=== PATIENT | male | born 1975 | race Hispanic/Latino ===

== ENCOUNTER 2020-09-01 20:09 | Inpatient (IN) | payer BC, OTHER ==
[~2020-09-01] VITALS: Ht 188 cm; Wt 121.7 kg
[2020-09-01 20:53] LABS: ABG BASE EXCESS 1.4 mmol/L (-2.0-3.0); ABG HCO3 24.6 mmol/L (21.0-28.0); ABG OXYGEN SATURATION 78.5 % (95.0-99.0); ABG PCO2 35 mmHg (35-48)
[2020-09-01 21:15] LABS: BASOPHILS % (AUTO) 0.3 % (0.0-5.0); EOSINOPHILS % (AUTO) 0.2 % (0.0-8.0); HEMATOCRIT 40.6 % (42-54); MEAN CORPUSCULAR HEMOGLOBIN 29.3 pg (27.0-33.0); MEAN CORPUSCULAR HGB CONC 34.5 g/dL (32.0-36.0); MEAN CORPUSCULAR VOLUME 84.9 fL (79-99); MONOCYTES % (AUTO) 3.3 % (3.0-13.0); NEUTROPHILS % (AUTO) 85.8 % (40.0-77.0); PLATELET COUNT (AUTO) 252 K/uL (130-400); RED BLOOD CELL COUNT(AUTO) 4.78 MIL/uL (4.50-6.20); RED CELL DISTRIBUTION WIDTH 12.7 % (11.0-15.5); WHITE BLOOD COUNT (AUTO) 14.7 K/uL (4.8-10.8)
[2020-09-01 21:17] LABS: APPEARANCE,URINE Clear (CLEAR); BILIRUBIN,URINE Negative (NEGATIVE); COLOR,URINE Dark Yellow (YELLOW); GLUCOSE, URINE (UA) >=1000 mg/dL (NEGATIVE); KETONES,URINE Trace mg/dL (NEGATIVE); LEUKOCYTE ESTERASE ,URINE Negative (NEGATIVE); NITRATE,URINE Negative (NEGATIVE); OCCULT BLOOD,URINE Negative (NEGATIVE); PROTEIN,URINE POS 2+ mg/dL (NEGATIVE)
[2020-09-01 21:23] LABS: BACTERIA,URINE Rare /HPF (None Seen); COARSE GRANULAR CASTS,URINE 0-2 /LPF (None Seen); MUCUS,URINE Rare LPF (None Seen); RBC,URINE 0-1 /HPF (0-1); SQUAMOUS EPITHELIAL CELL,UR Few /HPF (0-2); WBC,URINE 0-1 /HPF (0-1)
[2020-09-01 21:25] LABS: AMPHET/METH SCREEN,URINE NEGATIVE (NEGATIVE); BARBITURATE SCREEN, URINE NEGATIVE (NEGATIVE); BENZODIAZEPINES SCREEN,URINE NEGATIVE (NEGATIVE); CANNABINOID SCREEN,URINE NEGATIVE (NEGATIVE); COCAINE SCREEN,URINE NEGATIVE (NEGATIVE); OPIATE SCREEN,URINE NEGATIVE (NEGATIVE); PHENCYCLIDINE SCREEN,URINE NEGATIVE (NEGATIVE)
[2020-09-01 21:26] LABS: CREATININE 1.1 mg/dL (0.5-1.5); POTASSIUM 3.9 mmol/L (3.5-5.1)
[2020-09-01 21:31] LABS: ALBUMIN 2.5 g/dL (3.5-5.0); BILIRUBIN,TOTAL 0.5 mg/dL (0.2-1.0); TOTAL PROTEIN, SERUM 7.8 g/dL (6.0-8.3)
[2020-09-01] MEDS ORDERED: AZITHROMYCIN 500MG+NS 250ML 250 ML IV ONE (21:44)
[2020-09-01] MEDS ORDERED: DEXAMETHASONE SOD PHOSPHATE 10MG/ML 1ML VIAL ONE (21:44)
[2020-09-01] MEDS ORDERED: CEFTRIAXONE 1G VIAL ONE (21:45)
[2020-09-01] MEDS ORDERED: DEXTROSE 50%-WATER 50 ML DISP.SYRIN IV PRN (22:00)
[2020-09-01] MEDS ORDERED: POTASSIUM CHLORIDE 10% ELIXIR 20 MEQ/15 ML UDCUP PO PRN (22:00)
[2020-09-01] MEDS ORDERED: GLUCAGON 1MG KIT 1 MG ML IM PRN (22:00)
[2020-09-01] MEDS ORDERED: POTASSIUM CHLORIDE 20MEQ/100ML 100 ML IV PRN ×2 (22:00)
[2020-09-01] MEDS ORDERED: ERGOCALCIFEROL (VITAMIN D2) 50,000 UNIT CAPSULE PO ONE (22:15)
[2020-09-01] MEDS ORDERED: MAG/ALUM/SIMETH 30 ML UDCUP PO PRN (22:15)
[2020-09-01] MEDS ORDERED: DiphenhydrAMINE HCL 50 MG/ML VIAL IV PRN (22:15)
[2020-09-01] MEDS ORDERED: NITROGLYCERIN 0.4 MG SL TAB SL PRN (22:15)
[2020-09-01] MEDS ORDERED: ONDANSETRON 4MG INJ IV PRN (22:15)
[2020-09-01] MEDS ORDERED: DOXYCYCLINE 100MG+NS 250ML IV SCH (22:15)
[2020-09-01] MEDS ORDERED: PHARMACY COMMUNICATION**REMDESIVIR ORDER MISC SCH (22:15)
[2020-09-01] MEDS ORDERED: DIPHENHYDRAMINE HCL 25 MG CAPSULE PO PRN (22:15)
[2020-09-01] MEDS ORDERED: LACTULOSE 20 GM/30 ML UDCUP PO PRN (22:15)
[2020-09-01] MEDS ORDERED: ALBUTEROL 0.083% 2.5 MG/3 ML INH IH PRN (22:15)
[2020-09-01] MEDS ORDERED: ACETAMINOPHEN 325 MG TAB PO PRN ×2 (22:15)
[2020-09-01 22:41] LABS: CRP QUANTITATIVE 326.5 mg/L (0.00-9.0)
[2020-09-02] VITALS (9 sets, daily range): BP systolic 123–143; BP diastolic 63–81
[2020-09-02 03:59] LABS: BASOPHILS % (AUTO) 0.3 % (0.0-5.0); EOSINOPHILS % (AUTO) 0.1 % (0.0-8.0); HEMATOCRIT 41.6 % (42-54); LYMPHOCYTES % (AUTO) 5.8 % (21.0-51.0); MEAN CORPUSCULAR HEMOGLOBIN 28.7 pg (27.0-33.0); MEAN CORPUSCULAR HGB CONC 33.4 g/dL (32.0-36.0); MONOCYTES % (AUTO) 2.1 % (3.0-13.0); NEUTROPHILS % (AUTO) 89.9 % (40.0-77.0); PLATELET COUNT (AUTO) 269 K/uL (130-400); RED BLOOD CELL COUNT(AUTO) 4.84 MIL/uL (4.50-6.20); RED CELL DISTRIBUTION WIDTH 12.3 % (11.0-15.5); WHITE BLOOD COUNT (AUTO) 14.7 K/uL (4.8-10.8)
[2020-09-02 04:18] LABS: ALBUMIN 2.5 g/dL (3.5-5.0); BILIRUBIN,TOTAL 0.4 mg/dL (0.2-1.0); POTASSIUM 4.9 mmol/L (3.5-5.1)
[2020-09-02] MEDS: CEFTRIAXONE 1G VIAL IVP SCH ×2 (07:44→08:40)
[2020-09-02] MEDS: DEXAMETHASONE SOD PHOSPHATE 4 MG/ML 1ML VIAL IVP SCH ×3 (07:44→21:40)
[2020-09-02] MEDS: ACETYLCYSTEINE 600 MG CAPSULE PO SCH ×2 (08:39→20:28)
[2020-09-02] MEDS: ZINC SULFATE 220 CAPSULE PO SCH (08:39)
[2020-09-02] MEDS: ASCORBIC ACID 500 MG TAB PO SCH ×3 (08:39→20:28)
[2020-09-02] MEDS: FUROSEMIDE 20MG VIAL IV SCH ×2 (08:40→21:40)
[2020-09-02] MEDS: FAMOTIDINE 20MG VIAL IV SCH ×2 (08:41→20:28)
[2020-09-02] MEDS: DOXYCYCLINE 100MG+NS 250ML 250 ML IV SCH ×2 (08:41→20:28)
[2020-09-02] MEDS ORDERED: ENOXAPARIN SODIUM 40 MG/0.4 ML SYRINGE SQ SCH (09:00)
[2020-09-02] MEDS: INSULIN HUMULIN R 100 UNIT/ML 3ML SQ SCH ×4 (09:02→20:40)
[2020-09-02] MEDS ORDERED: INSULIN GLARGINE 100 UNITS/ML 10 ML VIAL SQ SCH ×2 (11:15→21:00)
[2020-09-02] MEDS ORDERED: PHARMACY COMMUNICATION MISC SCH (12:00)
[2020-09-02] MEDS: BARICITINIB (EUA) 2 MG TABLET PO SCH (12:30)
[2020-09-02] MEDS ORDERED: COMPOUND IV REFRIGERATED 1 EACH IVSOLN MISC PRN (14:45)
[2020-09-02] MEDS ORDERED: REMDESIVIR (EUA) 520 200 MG in 0.9% NACL 250ML 250 ML IV SCH (15:00)
[2020-09-02] MEDS: CEFEPIME HCL 2 GM VIAL IVP SCH (18:45)
[2020-09-02] MEDS: ENOXAPARIN SODIUM 40 MG/0.4 ML SYRINGE SQ SCH (20:30)
[2020-09-02] MEDS: INSULIN GLARGINE 100 UNITS/ML 10 ML VIAL SQ SCH (20:42)
[2020-09-03 00:08] VITALS: BP 137/62
[2020-09-03] MEDS: CEFEPIME HCL 2 GM VIAL IVP SCH ×3 (02:33→18:31)
[2020-09-03 03:58] LABS: BASOPHILS % (AUTO) 0.3 % (0.0-5.0); HEMATOCRIT 39.1 % (42-54); LYMPHOCYTES % (AUTO) 15.1 % (21.0-51.0); MEAN CORPUSCULAR HEMOGLOBIN 28.7 pg (27.0-33.0); MEAN CORPUSCULAR HGB CONC 33.8 g/dL (32.0-36.0); MONOCYTES % (AUTO) 5.4 % (3.0-13.0); NEUTROPHILS % (AUTO) 77.6 % (40.0-77.0); PLATELET COUNT (AUTO) 352 K/uL (130-400); RED CELL DISTRIBUTION WIDTH 12.1 % (11.0-15.5); WHITE BLOOD COUNT (AUTO) 9.1 K/uL (4.8-10.8)
[2020-09-03 04:12] VITALS: BP 139/77
[2020-09-03 04:21] LABS: ALBUMIN 2.2 g/dL (3.5-5.0); BILIRUBIN,TOTAL 0.3 mg/dL (0.2-1.0); POTASSIUM 4.3 mmol/L (3.5-5.1); TOTAL PROTEIN, SERUM 7.3 g/dL (6.0-8.3)
[2020-09-03 04:37] LABS: CRP QUANTITATIVE 192.3 mg/L (0.00-9.0)
[2020-09-03] MEDS: INSULIN HUMULIN R 100 UNIT/ML 3ML SQ SCH ×4 (05:45→21:48)
[2020-09-03] MEDS: REMDESIVIR LABS MISC SCH (05:46)
[2020-09-03] MEDS: INSULIN GLARGINE 100 UNITS/ML 10 ML VIAL SQ SCH (08:29)
[2020-09-03] MEDS: FAMOTIDINE 20MG VIAL IV SCH ×2 (08:29→21:41)
[2020-09-03] MEDS: ACETYLCYSTEINE 600 MG CAPSULE PO SCH ×2 (08:29→21:43)
[2020-09-03] MEDS: ZINC SULFATE 220 CAPSULE PO SCH (08:29)
[2020-09-03] MEDS: DOXYCYCLINE 100MG+NS 250ML 250 ML IV SCH ×2 (08:29→21:41)
[2020-09-03] MEDS: ENOXAPARIN SODIUM 40 MG/0.4 ML SYRINGE SQ SCH ×2 (08:30→21:45)
[2020-09-03] MEDS: ASCORBIC ACID 500 MG TAB PO SCH ×3 (08:31→21:43)
[2020-09-03] MEDS: BARICITINIB (EUA) 2 MG TABLET PO SCH (08:31)
[2020-09-03 08:32] VITALS: BP 155/93
[2020-09-03] MEDS: DEXAMETHASONE SOD PHOSPHATE 4 MG/ML 1ML VIAL IVP SCH ×2 (09:30→22:22)
[2020-09-03] MEDS ORDERED: INSULIN GLARGINE 100 UNITS/ML 10 ML VIAL SQ SCH ×2 (10:30→21:00)
[2020-09-03] MEDS: INSULIN LISPRO 100 UNIT/ML 3ML SQ SCH ×2 (12:09→16:44)
[2020-09-03 12:13] VITALS: BP 144/87
[2020-09-03] MEDS: REMDESIVIR (EUA) 520 100 MG in 0.9% NACL 250ML 250 ML IV SCH (15:59)
[2020-09-03 16:30] VITALS: BP 139/86
[2020-09-03 20:00] VITALS: BP 143/80
[2020-09-03] MEDS: FUROSEMIDE 20MG VIAL IV SCH (22:23)
[2020-09-04] VITALS (7 sets, daily range): BP systolic 124–139; BP diastolic 72–85
[2020-09-04] MEDS: CEFEPIME HCL 2 GM VIAL IVP SCH ×3 (02:05→18:23)
[2020-09-04 04:34] LABS: BASOPHILS % (AUTO) 0.2 % (0.0-5.0); EOSINOPHILS % (AUTO) 0.1 % (0.0-8.0); HEMATOCRIT 40.8 % (42-54); MEAN CORPUSCULAR HEMOGLOBIN 28.2 pg (27.0-33.0); MEAN CORPUSCULAR HGB CONC 33.1 g/dL (32.0-36.0); MEAN CORPUSCULAR VOLUME 85.4 fL (79-99); MONOCYTES % (AUTO) 5.2 % (3.0-13.0); PLATELET COUNT (AUTO) 406 K/uL (130-400); RED BLOOD CELL COUNT(AUTO) 4.78 MIL/uL (4.50-6.20); RED CELL DISTRIBUTION WIDTH 12.1 % (11.0-15.5); WHITE BLOOD COUNT (AUTO) 11.7 K/uL (4.8-10.8)
[2020-09-04 04:48] LABS: ALBUMIN 2.4 g/dL (3.5-5.0); BILIRUBIN,TOTAL 0.4 mg/dL (0.2-1.0); CRP QUANTITATIVE 69.2 mg/L (0.00-9.0); POTASSIUM 4.5 mmol/L (3.5-5.1); TOTAL PROTEIN, SERUM 7.6 g/dL (6.0-8.3)
[2020-09-04] MEDS: REMDESIVIR LABS MISC SCH (05:24)
[2020-09-04] MEDS: INSULIN HUMULIN R 100 UNIT/ML 3ML SQ SCH ×4 (06:39→20:57)
[2020-09-04] MEDS: INSULIN LISPRO 100 UNIT/ML 3ML SQ SCH ×3 (06:48→16:49)
[2020-09-04] MEDS: ACETYLCYSTEINE 600 MG CAPSULE PO SCH ×2 (09:24→21:00)
[2020-09-04] MEDS: ASCORBIC ACID 500 MG TAB PO SCH ×3 (09:24→21:01)
[2020-09-04] MEDS: BARICITINIB (EUA) 2 MG TABLET PO SCH (09:25)
[2020-09-04] MEDS: ZINC SULFATE 220 CAPSULE PO SCH (09:25)
[2020-09-04] MEDS: DEXAMETHASONE SOD PHOSPHATE 4 MG/ML 1ML VIAL IVP SCH (09:25)
[2020-09-04] MEDS: FAMOTIDINE 20MG VIAL IV SCH ×2 (09:25→20:53)
[2020-09-04] MEDS: DOXYCYCLINE 100MG+NS 250ML 250 ML IV SCH ×2 (09:26→20:52)
[2020-09-04] MEDS: ENOXAPARIN SODIUM 40 MG/0.4 ML SYRINGE SQ SCH ×2 (09:26→21:04)
[2020-09-04] MEDS: INSULIN GLARGINE 100 UNITS/ML 10 ML VIAL SQ SCH ×2 (10:03→20:55)
[2020-09-04] MEDS: REMDESIVIR (EUA) 520 100 MG in 0.9% NACL 250ML 250 ML IV SCH (14:45)
[2020-09-04] MEDS: FUROSEMIDE 20MG VIAL IV SCH (22:02)
[2020-09-05] MEDS: CEFEPIME HCL 2 GM VIAL IVP SCH ×3 (03:05→18:48)
[2020-09-05 04:26] VITALS: BP 126/66
[2020-09-05 05:34] LABS: BASOPHILS % (AUTO) 0.3 % (0.0-5.0); EOSINOPHILS % (AUTO) 0.6 % (0.0-8.0); HEMATOCRIT 40.3 % (42-54); LYMPHOCYTES % (AUTO) 18.9 % (21.0-51.0); MEAN CORPUSCULAR HEMOGLOBIN 29.1 pg (27.0-33.0); MEAN CORPUSCULAR HGB CONC 33.7 g/dL (32.0-36.0); MEAN CORPUSCULAR VOLUME 86.1 fL (79-99); MONOCYTES % (AUTO) 6.5 % (3.0-13.0); NEUTROPHILS % (AUTO) 71.4 % (40.0-77.0); PLATELET COUNT (AUTO) 403 K/uL (130-400); RED BLOOD CELL COUNT(AUTO) 4.68 MIL/uL (4.50-6.20); RED CELL DISTRIBUTION WIDTH 12.2 % (11.0-15.5); WHITE BLOOD COUNT (AUTO) 11.3 K/uL (4.8-10.8)
[2020-09-05 05:58] LABS: ALBUMIN 2.4 g/dL (3.5-5.0); BILIRUBIN,TOTAL 0.4 mg/dL (0.2-1.0); CREATININE 1.1 mg/dL (0.5-1.5); POTASSIUM 3.8 mmol/L (3.5-5.1); TOTAL PROTEIN, SERUM 7.3 g/dL (6.0-8.3)
[2020-09-05] MEDS: REMDESIVIR LABS MISC SCH (06:00)
[2020-09-05] MEDS: INSULIN LISPRO 100 UNIT/ML 3ML SQ SCH ×3 (06:49→17:22)
[2020-09-05] MEDS: INSULIN HUMULIN R 100 UNIT/ML 3ML SQ SCH ×4 (06:53→21:00)
[2020-09-05 07:46] VITALS: BP 122/72
[2020-09-05] MEDS: DOXYCYCLINE 100MG+NS 250ML 250 ML IV SCH ×2 (09:36→21:58)
[2020-09-05] MEDS: ENOXAPARIN SODIUM 40 MG/0.4 ML SYRINGE SQ SCH ×2 (09:37→21:52)
[2020-09-05] MEDS: ACETYLCYSTEINE 600 MG CAPSULE PO SCH ×2 (09:38→21:50)
[2020-09-05] MEDS: ZINC SULFATE 220 CAPSULE PO SCH (09:38)
[2020-09-05] MEDS: ASCORBIC ACID 500 MG TAB PO SCH ×3 (09:38→21:58)
[2020-09-05] MEDS: BARICITINIB (EUA) 2 MG TABLET PO SCH (09:38)
[2020-09-05] MEDS: DEXAMETHASONE SOD PHOSPHATE 4 MG/ML 1ML VIAL IVP SCH (09:39)
[2020-09-05] MEDS: FAMOTIDINE 20MG VIAL IV SCH ×2 (09:39→21:52)
[2020-09-05] MEDS: INSULIN GLARGINE 100 UNITS/ML 10 ML VIAL SQ SCH ×2 (10:50→21:56)
[2020-09-05] MEDS: KCL 20 MEQ ERTAB PO PRN (10:57)
[2020-09-05 11:55] VITALS: BP 138/67
[2020-09-05] MEDS: REMDESIVIR (EUA) 520 100 MG in 0.9% NACL 250ML 250 ML IV SCH (14:07)
[2020-09-05 16:00] VITALS: BP 121/68
[2020-09-05 20:00] VITALS: BP 122/52
[2020-09-05] MEDS: FUROSEMIDE 20MG VIAL IV SCH (22:56)
[2020-09-06] VITALS (7 sets, daily range): BP systolic 125–161; BP diastolic 72–81
[2020-09-06] MEDS: CEFEPIME HCL 2 GM VIAL IVP SCH ×2 (02:53→11:34)
[2020-09-06 03:55] LABS: BASOPHILS % (AUTO) 0.2 % (0.0-5.0); EOSINOPHILS % (AUTO) 0.9 % (0.0-8.0); HEMATOCRIT 41.8 % (42-54); LYMPHOCYTES % (AUTO) 15.8 % (21.0-51.0); MEAN CORPUSCULAR HEMOGLOBIN 28.9 pg (27.0-33.0); MEAN CORPUSCULAR HGB CONC 33.7 g/dL (32.0-36.0); MEAN CORPUSCULAR VOLUME 85.7 fL (79-99); MONOCYTES % (AUTO) 6.4 % (3.0-13.0); NEUTROPHILS % (AUTO) 74.4 % (40.0-77.0); PLATELET COUNT (AUTO) 417 K/uL (130-400); RED BLOOD CELL COUNT(AUTO) 4.88 MIL/uL (4.50-6.20); RED CELL DISTRIBUTION WIDTH 12.1 % (11.0-15.5); WHITE BLOOD COUNT (AUTO) 11.7 K/uL (4.8-10.8)
[2020-09-06 04:22] LABS: CREATININE 0.9 mg/dL (0.5-1.5); CRP QUANTITATIVE 49.9 mg/L (0.00-9.0); POTASSIUM 3.6 mmol/L (3.5-5.1)
[2020-09-06] MEDS: REMDESIVIR LABS MISC SCH (06:00)
[2020-09-06] MEDS: INSULIN HUMULIN R 100 UNIT/ML 3ML SQ SCH ×4 (06:37→21:00)
[2020-09-06] MEDS: INSULIN LISPRO 100 UNIT/ML 3ML SQ SCH ×3 (06:44→17:00)
[2020-09-06 06:59] LABS: ALBUMIN 2.5 g/dL (3.5-5.0); BILIRUBIN,TOTAL 0.5 mg/dL (0.2-1.0); TOTAL PROTEIN, SERUM 6.9 g/dL (6.0-8.3)
[2020-09-06] MEDS: ACETYLCYSTEINE 600 MG CAPSULE PO SCH (09:51)
[2020-09-06] MEDS: ASCORBIC ACID 500 MG TAB PO SCH ×3 (09:52→21:00)
[2020-09-06] MEDS: ZINC SULFATE 220 CAPSULE PO SCH (09:55)
[2020-09-06] MEDS: FAMOTIDINE 20MG VIAL IV SCH ×2 (09:55→21:00)
[2020-09-06] MEDS: BARICITINIB (EUA) 2 MG TABLET PO SCH (09:55)
[2020-09-06] MEDS: DOXYCYCLINE 100MG+NS 250ML 250 ML IV SCH (09:56)
[2020-09-06] MEDS: DEXAMETHASONE SOD PHOSPHATE 4 MG/ML 1ML VIAL IVP SCH (09:56)
[2020-09-06] MEDS: ENOXAPARIN SODIUM 40 MG/0.4 ML SYRINGE SQ SCH (09:57)
[2020-09-06] MEDS ORDERED: [UNRECOGNIZED DRUG - REMARK] MISC SCH ×2 (10:00→10:45)
[2020-09-06] MEDS: INSULIN GLARGINE 100 UNITS/ML 10 ML VIAL SQ SCH (10:04)
[2020-09-06] MEDS: KCL 20 MEQ ERTAB PO PRN (11:36)
[2020-09-06] MEDS: REMDESIVIR (EUA) 520 100 MG in 0.9% NACL 250ML 250 ML IV SCH (15:03)
[2020-09-06] MEDS ORDERED: ATORVASTATIN 40 MG TABLET PO SCH (15:45)
[2020-09-06] MEDS ORDERED: ASPIRIN 81MG CHEW TAB PO SCH (15:45)
[2020-09-06] MEDS ORDERED: IOHEXOL-350 75 ML VIAL IV ONE (15:48)
[2020-09-06 18:22] LABS: CHOLESTEROL 153 mg/dL (<200); HDL CHOLESTEROL 95 mg/dL (29-71); LDL DIRECT 90 mg/dL (0-99); TRIGLYCERIDES 220 mg/dL (30-200)
[2020-09-07] MEDS ORDERED: ATORVASTATIN 40 MG TABLET PO SCH (09:00)
[2020-09-07] MEDS ORDERED: ENOXAPARIN SODIUM 40 MG/0.4 ML SYRINGE SQ SCH (09:00)
[2020-09-07] MEDS ORDERED: ASPIRIN 81MG CHEW TAB PO SCH (09:00)
[2020-09-07] MEDS ORDERED: CEFEPIME HCL 2 GM VIAL IVP SCH (09:00)
[2020-09-07] MEDS ORDERED: ASPIRIN 325 MG TABLET PO SCH (09:00)
== END 2020-09-06 22:29 | disposition short-term general hospital (02) | DRG 177 ==
LOC: EDH 20:09 → EDHIP 20:10 → UNDOADMIN 20:10 → EDHIP 22:02 → 2AH 22:39 → EDHIP 22:39
PROVIDERS: ADMIT Family Medicine; ATTEND Family Medicine
PROC: 5A0935A Assistance with Respiratory Ventilation, Less than 24 Consecutive Hours, High Flow/Velocity Cannula (ICD-10-PCS; 2020-09-01)
PROC: XW033E5 Introduction of Remdesivir Anti-infective into Peripheral Vein, Percutaneous Approach, New Technology Group 5 (ICD-10-PCS; principal; 2020-09-02)
PROC: 5A0945A Assistance with Respiratory Ventilation, 24-96 Consecutive Hours, High Flow/Velocity Cannula (ICD-10-PCS; 2020-09-03)
PROC: 5A0945A Assistance with Respiratory Ventilation, 24-96 Consecutive Hours, High Flow/Velocity Cannula (ICD-10-PCS; 2020-09-05)
DX: U07.1 COVID-19 (principal); J80 Acute respiratory distress syndrome; J12.82 Pneumonia due to coronavirus disease 2019; I63.511 Cerebral infarction due to unspecified occlusion or stenosis of right middle cerebral artery; D68.69 Other thrombophilia; E09.65 Drug or chemical induced diabetes mellitus with hyperglycemia; T38.0X5A Adverse effect of glucocorticoids and synthetic analogues, initial encounter; J45.909 Unspecified asthma, uncomplicated; I10 Essential (primary) hypertension; F43.9 Reaction to severe stress, unspecified; E78.5 Hyperlipidemia, unspecified; E66.9 Obesity, unspecified; Z79.4 Long term (current) use of insulin; Z68.34 Body mass index [BMI] 34.0-34.9, adult; Y92.89 Other specified places as the place of occurrence of the external cause
CPT/HCPCS: 36415; 36600; 70450; 70496; 70498; 70551; 71045; 71250; 80053; 80061; 80305; 81001; 82010; 82140; 82550; 82728; 82803; 82948; 83036; 83605; 83615; 83735; 83880; 84145; 84484; 85025; 85378; 86140; 86900; 86901; 87040; 87426; 87637; 87804; 93005; 99291; G0378; J0456; J0692; J0696; J1100; J1650; J1815; J1940; J3490; J7050; Q9967; U0003